=== PATIENT | male | born 1975 | race Caucasian/White ===

== ENCOUNTER 2019-09-24 19:57 | Emergency (ER) | payer OTHER, SELFPAY ==
[2019-09-24 19:59] VITALS: BP 139/86; PULSE 75; RESP 14; TEMP 36.1; O2SAT 100
--- NOTE | 2019-09-24 20:14 | ED.GENADULT ---
HPI - General Adult General Chief complaint: Wound/Laceration <Shukri Camargo PA-C - Last Filed: 09/24/19 20:18> Stated complaint: finger lac <Shukri Camargo PA-C - Last Filed: 09/24/19 20:18> Time Seen by Provider: 09/24/19 20:07 <Shukri Camargo PA-C - Last Filed: 09/24/19 20:18> Source: patient <Shukri Camargo PA-C - Last Filed: 09/24/19 20:18> Mode of arrival: ambulatory <Shukri Camargo PA-C - Last Filed: 09/24/19 20:18> Limitations: no limitations <Shukri Camargo PA-C - Last Filed: 09/24/19 20:18> History of Present Illness HPI narrative: Patient is a 44-year-old male who presents to emergency department for evaluation of right index pain after lacerating the distal phalanx patient notes tetanus is not up-to-date patient denies any other injuries or complaints notes minimal discomfort injury occurred just prior to arrival <Shukri Camargo PA-C - Last Filed: 09/24/19 20:18> Related Data Allergies/adverse reactions: Allergies Allergy/AdvReac Type Severity Reaction Status Date / Time No Known Allergies Allergy Unverified 05/12/17 10:41 <Shukri Camargo PA-C - Last Filed: 09/24/19 20:18> Review of Systems Review of Systems: Narrative: CONSTITUTIONAL: Denies fever, chills, or sweats. SKIN: Positive for flap laceration MUSCULOSKELETAL: Positive for finger pain denies any joint pain NEUROLOGIC: Denies numbness, or weakness. PSYCHIATRIC: Denies anxiety or depression. <Shukri Camargo PA-C - Last Filed: 09/24/19 20:18> [facility] Surgical History Surgical History: Surgical History History of orthopedic surgery <Shukri Camargo PA-C - Last Filed: 09/24/19 20:18> Social History Social History: Social History (Updated 09/24/19 @ 20:17 by Shukri Camargo PA-C) Tobacco type: e-cigarettes Gender identity (if verbalized by the patient): Male <Shukri Camargo PA-C - Last Filed: 09/24/19 20:18> Exam Narrative: Exam Narrative: GENERAL: Well-appearing, well-nourished, and in no acute distress. HEAD: Normocephalic, atraumatic. EYES: PERRLA and EOMI. ENT: Nares clear, no rhinorrhea or epistaxis. Mucous membranes moist. EXTREMITIES: Normal range of motion. No edema. Superficial 1 cm flap laceration involving the distal right index finger SKIN: Warm, dry, no rash. NEURO: No focal deficits. Alert and oriented x3. Neurovascularly intact. Capillary refill less than 2 seconds PSYCH: Normal mood and affect. <Shukri Camargo PA-C - Last Filed: 09/24/19 20:18> Course Course Emergency Course: Patient in the room in no distress aware of case findings treatment plan and diagnosis agreeing to follow-up as directed or to return if symptoms worsen or concerns <Suhkri Camargo PA-C - Last Filed: 09/24/19 20:18> Vital Signs Vital signs: Vital Signs Temperature 97.0 F L 09/24/19 19:59 Pulse Rate 75 09/24/19 19:59 Respiratory Rate 14 09/24/19 19:59 Blood Pressure 139/86 09/24/19 19:59 Pulse Oximetry 100 09/24/19 19:59 Temperature 98.2 F 09/24/19 20:39 Pulse Rate 98 09/24/19 20:39 Respiratory Rate 18 09/24/19 20:39 Blood Pressure 130/80 09/24/19 20:39 Pulse Oximetry 98 09/24/19 20:39 <Shukri Camargo PA-C - Last Filed: 09/24/19 20:18> Vital Signs Temperature 97.0 F L 09/24/19 19:59 Pulse Rate 75 09/24/19 19:59 Respiratory Rate 14 09/24/19 19:59 Blood Pressure 139/86 09/24/19 19:59 Pulse Oximetry 100 09/24/19 19:59 Temperature 98.2 F 09/24/19 20:39 Pulse Rate 98 09/24/19 20:39 Respiratory Rate 18 09/24/19 20:39 Blood Pressure 130/80 09/24/19 20:39 Pulse Oximetry 98 09/24/19 20:39 <Kayy Brown MD - Last Filed: 09/26/19 19:00> Procedures Laceration Laceration 1: Date: 09/24/19 <Shukri Camargo PA-C - Last Filed: 09/24/19 20:18> Site: upper extremity
[2019-09-24] MEDS: TETANUS,DIPHTHERIA,AC PERTUSSIS ADULT 0.5 ML (ADACEL) IM (20:37)
[2019-09-24 20:39] VITALS: BP 130/80; PULSE 98; RESP 18; TEMP 36.8; O2SAT 98
== END 2019-09-24 20:40 | disposition home or self-care (01) ==
PROVIDERS: Emergency Provider General Practice
DX: S61.210A Laceration without foreign body of right index finger without damage to nail, initial encounter (principal); F17.290 Nicotine dependence, other tobacco product, uncomplicated; Z23 Encounter for immunization; X58.XXXA Exposure to other specified factors, initial encounter
CPT/HCPCS: 12001; 90471; 90715; 99282

== ENCOUNTER 2023-12-26 16:15 | Emergency (ER) | payer BC, SELFPAY ==
--- NOTE | ~2023-12-26 | CT_ITS ---
EXAMINATION: CT abdomen pelvis w con DATE: 12/26/2023 17:09 INDICATION: epigastric pain TECHNIQUE: Computed tomography (CT) of the abdomen and pelvis was performed with 100 mL Omnipaque-350 intravenous contrast. Automated exposure control and iterative reconstruction technique were employe d. The dose-length product was 746.99 mGy-cm. COMPARISON: None. FINDINGS: Lower thorax: Unremarkable Liver: Normal. Biliary/Gallbladder: Partially collapsed phrygian cap with mild wall thickening, mucosal hyperemia, a nd hyperdense intraluminal material. The gallbladder is otherwise normal. No bile duct dilation. Pancreas: No mass or duct dilation. Spleen: Normal. Adrenals:No mass. Kidneys: No suspicious mass, obstructing stone, or hydronephrosis. GI tract: Mild distal esophageal wall edema. No small or large bowel dilation. Normal appendix. Mesentery/Peritoneum: No ascites, mass, or free air. Retroperitoneum: No mass. Pelvis: Mostly empty urinary bladder. Prostate calcifications. Soft Tissues: Small uncomplicated fat-containing umbilical and bilateral inguinal hernias Bones: No acute osseous finding. IMPRESSION: Mild esophagitis Suggestion of an inflamed gallbladder phrygian cap, possibly with intraluminal sludge or stones. Jade elate with right upper quadrant pain/tenderness and biliary labs. Reviewed, dictated and finalized at location K. IMPRESSION: Mild esophagitis Suggestion of an inflamed gallbladder phrygian cap, possibly with intraluminal sludge or stones. Correlate with right upper quadrant pain/tenderness and bilia ry labs.
[2023-12-26 16:21] VITALS: BP 134/80; PULSE 82; RESP 20; TEMP 36.8; O2SAT 96
--- NOTE | 2023-12-26 16:32 | ECG_ITS ---
SEE SCANNED COPY FOR CONFIRMED REPORT MTDD
--- NOTE | 2023-12-26 16:32 | ED.ABDPAIN ---
HPI - Abdominal Pain General Chief Complaint: Abdominal Pain <Angeles Segura PA-C - Last Filed: 12/26/23 17:55> Stated Complaint: stomach thing going on <Angeles Segura PA-C - Last Filed: 12/26/23 17:55> Time Seen by Provider: 12/26/23 16:17 <Angeles Segura PA-C - Last Filed: 12/26/23 17:55> Source: patient <Angeles Segura PA-C - Last Filed: 12/26/23 17:55> Mode of arrival: ambulatory <Angeles Segura PA-C - Last Filed: 12/26/23 17:55> Limitations: no limitations <Angeles Segura PA-C - Last Filed: 12/26/23 17:55> History of Present Illness HPI narrative: This is a 48-year-old male that presents to the emergency department for epigastric abdominal pain. Reports onset after eating pizza. Associated with nausea and vomiting. The pain is dull in nature. Intermittent. He vomited and his pain has improved since. Reports a similar episode about a week ago. Denies fevers or diarrhea. <Angeles Segura PA-C - Last Filed: 12/26/23 17:55> Related Data Allergies/Adverse Reactions: Allergies Allergy/AdvReac Type Severity Reaction Status Date / Time No Known Allergies Allergy Verified 12/26/23 16:23 <Angeles Segura PA-C - Last Filed: 12/26/23 17:55> Review of Systems Review of Systems: CONSTITUTIONAL: Denies fever GASTROINTESTINAL: Reports abdominal pain, nausea, vomiting. Denies diarrhea. GENITOURINARY: Denies dysuria <Angeles Segura PA-C - Last Filed: 12/26/23 17:55> All systems reviewed & are unremarkable except as noted in HPI and below <Angeles Segura PA-C - Last Filed: 12/26/23 17:55> PMFSH Past Medical History Medical History: Medical History (Updated 12/26/23 @ 17:49 by Angeles Segura PA-C) No active medical problems <Angeles Segura PA-C - Last Filed: 12/26/23 17:55> Surgical History Surgical History: Surgical History History of orthopedic surgery <Angeles Segura PA-C - Last Filed: 12/26/23 17:55> Social History Social History: Social History (Updated 09/24/19 @ 20:17 by Shukri Camargo, MANDO) Tobacco type: e-cigarettes/vaping Gender identity (if verbalized by the patient): Male <Angeles Segura PA-C - Last Filed: 12/26/23 17:55> Exam Narrative: GENERAL: Well-appearing, well-nourished, and in no acute distress. HEAD: Normocephalic, atraumatic. EYES: EOMI. CHEST: Clear to auscultation. No respiratory distress. No wheezes rales or rhonchi HEART: Regular rate and rhythm. No murmur heard. Normal peripheral pulses. ABDOMEN: Soft, nontender, nondistended, normal active bowel sounds. EXTREMITIES: Normal range of motion. No edema. SKIN: Warm, dry, no rash. NEURO: No focal deficits. Alert and oriented x3. PSYCH: Normal mood and affect <Angeles Segura PA-C - Last Filed: 12/26/23 17:55> Course Course Emergency Course: Patient updated on his workup. Resting comfortably without any pain at this time <Angeles Segura PA-C - Last Filed: 12/26/23 17:55> NICU RN/PA Physician Supervision I agree with midlevel documentation; I performed the medical decision making component of this evaluation. <Bee Trujillo MD - Last Filed: 12/26/23 18:55> Vital Signs Vital signs: Vital Signs Temperature 98.2 F 12/26/23 16:21 Pulse Rate 82 12/26/23 16:21 Respiratory Rate 20 12/26/23 16:21 Blood Pressure 134/80 12/26/23 16:21 Pulse Oximetry 96 12/26/23 16:21 Oxygen Delivery Room Air 12/26/23 16:21 Temperature 98.5 F 12/26/23 18:07 Pulse Rate 72 12/26/23 18:07 Respiratory Rate 15 12/26/23 18:07 Blood Pressure 130/83 12/26/23 18:07 Pulse Oximetry 99 12/26/23 18:07 Oxygen Delivery Room Air 12/26/23 16:21 <Angeles Segura PA-C - Last Filed: 12/26/23 17:55> Vital Signs Temperature 98.2 F 12/26/23 16:21 Pulse Rate 82 12/26/23 16:21 Respiratory Rate 20 12/26/23 16:21 Blood Pressure
[2023-12-26] MEDS: ONDANSETRON INJ 4 MG/2 ML VIAL IV PUSH (16:37)
[2023-12-26 16:38] LABS: Basophils Absolute Auto 0.1 K/mm3 (0.0-0.1); Basophils Percent Auto 0.4 % (0.2-1.2); Eosinophils Absolute Auto 0.1 K/mm3 (0-0.3); Hematocrit 42.4 % (42.0-52.0); Hemoglobin 14.6 g/dL (14.0-18.0); Immature Granulocyte Absolute 0.06 K/mm3 (0.00-0.031); Immature Granulocyte Percent A 0.5 % (0-0.5); Lymphocytes Percent Auto 8.9 % (18.3-44.2); Mean Corpuscular HGB Conc 34.4 g/dl (32-36); Mean Corpuscular Hemoglobin 33.4 pg (26-34); Mean Platelet Volume 9.5 fl (7.4-10.4); Monocytes Absolute Auto 0.4 K/mm3 (0.1-0.6); Monocytes Percent Auto 3.1 % (2.6-8.5); Neutrophils Absolute Auto 9.7 K/mm3 (1.3-6.7); Neutrophils Percent Auto 86.1 % (45.5-73.1); Platelet Count Result 232 k/mm3 (150-375); Red Blood Count 4.37 M/mm3 (4.6-6.20); Red Cell Distribution Width 12.4 % (11.5-14.5); White Blood Count 11.3 K/mm3 (4.5-10.0)
[2023-12-26] MEDS: PANTOPRAZOLE SODIUM IV 40 MG VIAL IV PUSH (16:40)
[2023-12-26 16:42] VITALS: BP 122/81; PULSE 84; RESP 14; O2SAT 97
[2023-12-26 16:50] LABS: Alanine Aminotransferase 22 U/L (6-50); Albumin Level 4.9 g/dL (3.5-5.1); Alkaline Phosphatase 91 U/L (38-126); Anion Gap 8 mmol/L (4-12); Aspartate Amino Transferase 24 U/L (17-59); Bilirubin,Total 0.8 mg/dL (0.2-1.3); Blood Urea Nitrogen 13 mg/dL (9-20); Calcium 9.4 mg/dL (8.4-10.2); Carbon Dioxide 28 mmol/L (22-30); Chloride 104 mmol/L (98-107); Estimated CRCL calculation 140 ml/min; Estimated Glomerular Filt Rate > 60; Glucose 144 mg/dL (65-110); Lipase 252 U/L (23-300); Potassium 3.9 mmol/L (3.4-5.0); Sodium 140 mmol/L (137-145)
[2023-12-26 16:58] LABS: Appearance Urine Turbid (Clear); Bacteria Urine None Seen /hpf; Bilirubin Urine Negative (Negative); Blood Urine Negative (Negative); Color Urine Yellow (Yellow); Glucose Urine UA Negative (Negative); Ketones Urine 2+ mg/dL (Negative); Leukocyte Esterase Ur 1+ LEU/UL (Negative); Nitrate Urine Negative (Negative); Non Pathogenic Casts 0-2; Protein Urine Trace mg/dL (Negative); RBC Urine 0-2 /hpf (0-2); Specific Grav Ur 1.026 (1.001-1.035); Squamous Epithelial Cell Urine Occasional /hpf (Few); pH Urine 7.5 (5.0-9.0)
[2023-12-26 17:01] LABS: Troponin I < 0.012 ng/mL (0.000-0.034)
[2023-12-26 17:16] LABS: Add Urine Microscopic? YES
[2023-12-26] MEDS: SODIUM CHLORIDE 0.9% IV 1,000 ML 999 ML IV CONT (17:33)
[2023-12-26 17:34] VITALS: BP 121/70; PULSE 86; RESP 15; O2SAT 96
[2023-12-26 18:07] VITALS: BP 130/83; PULSE 72; RESP 15; TEMP 36.9; O2SAT 99
== END 2023-12-26 18:09 | disposition home or self-care (01) ==
PROVIDERS: Emergency Provider Physician Assistant
DX: R82.81 Pyuria (principal); R10.13 Epigastric pain
CPT/HCPCS: 36415; 74177; 80053; 81001; 83690; 84484; 85025; 87086; 93005; 96361; 96374; 96375; 99284; C9113; J2405; J7030; Q9967